=== PATIENT | male | born 1995 | race Two or more races ===

== ENCOUNTER 2021-10-27 18:31 | Emergency (ER) | payer OTHER ==
[~2021-10-27] VITALS: Ht 175.3 cm; Wt 104.3 kg
[2021-10-27 19:04] VITALS: BP 153/101
== END 2021-10-27 20:46 | disposition left against medical advice (07) ==
LOC: ER 18:35
DX: S00.512A Abrasion of oral cavity, initial encounter (principal); R42 Dizziness and giddiness; E11.9 Type 2 diabetes mellitus without complications; Y04.2XXA Assault by strike against or bumped into by another person, initial encounter; Y93.89 Activity, other specified; Y92.89 Other specified places as the place of occurrence of the external cause; Y99.8 Other external cause status
CPT/HCPCS: 70450; 70486; 72125

== ENCOUNTER 2022-04-24 02:15 | Emergency (ER) | payer MEDICAID, OTHER ==
[~2022-04-24] VITALS: Ht 177.8 cm; Wt 96.0 kg
[2022-04-24] MEDS ORDERED: TETANUS-DIPTH-ACEL PERTUSSIS 0.5ML SYR Tdap IM ONE (03:45)
[2022-04-24] MEDS ORDERED: IBUPROFEN 800 MG TAB PO ONE (03:45)
[2022-04-24 03:59] VITALS: BP 135/76
== END 2022-04-24 04:06 | disposition home or self-care (01) ==
LOC: ER 02:15
DX: S41.151A Open bite of right upper arm, initial encounter (principal); S00.81XA Abrasion of other part of head, initial encounter; E11.9 Type 2 diabetes mellitus without complications; W50.3XXA Accidental bite by another person, initial encounter; Y93.89 Activity, other specified; Y92.89 Other specified places as the place of occurrence of the external cause; Y99.8 Other external cause status
CPT/HCPCS: 90471; 90715